=== PATIENT | female | born 1940 | race Caucasian/White ===

== ENCOUNTER 2019-11-03 15:12 | Inpatient (IN) | payer MEDICARE ==
--- NOTE | 2019-11-03 15:50 | RAD ---
XR Chest 1 View Portable HISTORY: Chest pain, palpitations COMPARISON: None FINDINGS: The heart size is normal. The aorta is tortuous. The lungs are well expanded without focal areas of consolidation, pneumothorax or pleural effusions. There are postop changes and metallic hardware in the lower cervical spine. IMPRESSION: No radiographic evidence of acute cardiopulmonary process.
[2019-11-03 15:59] LABS: Bacteria/HPF None Seen HPF (None Seen); Bilirubin Negative (Negative); Blood, Urine Negative (Negative); Clarity Clear (Clear); Glucose, Urine (Dipstick) Normal (Negative); Leukocyte 75 Leu/uL (Negative); Nitrite Negative (Negative); Protein, Urine (Dipstick) Negative (Neg-Trace); RBC/HPF 0-3 HPF (0-3); Squamous Epithelial 0-3 HPF (0-3); Urobilinogen Normal mg/dL (Less than 2)
[2019-11-03 17:41] LABS: #Basophils 0.1 thou/uL (0.0-0.2); #Eosinphils 0.1 thou/uL (0.0-0.7); #Monocytes 0.5 thou/uL (0.11-0.59); #Neutrophils 4.3 thou/uL (1.40-6.50); %Basophils 1.4 % (0.0-1.0); %Eosinophils 1.5 % (0.0-10.0); %Lymphocytes 28.7 % (21.0-51.0); %Monocytes 6.7 % (0.0-10.0); %Neutrophils 61.8 % (42.0-75.0); Hemoglobin 11.9 g/dL (12.0-16.0); Mean Corpuscular HGB CONC 33.8 g/dL (32.0-36.0); Mean Corpuscular Hemoglobin 32.9 pg (27.0-31.0); Mean Corpuscular Volume 97.3 fL (78.0-98.0); Mean Platelet Volume 7.8 fL (7.4-10.4); Platelet Count 334 thou/uL (130-400); RBC Distribution Width 11.3 % (11.5-14.5); Red Blood Cell (RBC) Count 3.63 mill/uL (4.20-5.40); White Blood Cell (WBC) Count 6.9 thou/uL (4.8-10.8)
[2019-11-03 17:50] LABS: ALT (SGPT) 9 U/L (8-55); AST (SGOT) 16 U/L (5-34); Albumin 4.3 g/dL (3.4-4.8); Alkaline Phosphatase 93 U/L (40-110); Anion Gap 11 mmol/L (10-20); BUN (Urea Nitrogen) 17 mg/dL (9.8-20.1); Bilirubin, Total 0.4 mg/dL (0.2-1.2); CK (CPK) 33 U/L (29-168); Calc. Creatinine Clearance 0 mL/min (70-130); Calcium 10.2 mg/dL (7.8-10.44); Carbon Dioxide 27 mmol/L (23-31); Chloride 107 mmol/L (98-107); Estimated GFR-MDRD 41; Globulin 2.8 g/dL (2.4-3.5); Glucose 88 mg/dL (83-110); Potassium 4.2 mmol/L (3.5-5.1); Protein, Total 7.1 g/dL (6.0-8.3); Sodium 141 mmol/L (136-145)
[2019-11-03 19:25] LABS: Magnesium 1.9 mg/dL (1.6-2.6)
[2019-11-03 20:33] LABS: Troponin I 0.023 ng/mL (< 0.028)
[2019-11-03] MEDS ORDERED: Senokot S 8.6-50 MG TAB PO PRN (21:39)
[2019-11-03] MEDS ORDERED: Acetaminophen 325 MG TAB PO PRN (21:39)
[2019-11-03] MEDS ORDERED: Calcium Carbonate 500 MG ChewTAB PO PRN (21:39)
[2019-11-03] MEDS ORDERED: Sodium Chloride 0.9% 1,000 ML IV SCH (21:45)
[2019-11-03] MEDS ORDERED: Magnesium 2 GM/50 ML 2 GM in Premix Bag 1 BAG IVPB SCH (22:00)
--- NOTE | 2019-11-03 22:29 | HP ---
PRIMARY CARE PHYSICIAN: Kenyatta Acosta NP CHIEF COMPLAINT: Near-syncope. HISTORY OF PRESENT ILLNESS: HPI was taken from both the patient and her granddaughter via telephone. The patient is a 79-year-old female with past medical history significant for orthostatic hypotension, hypothyroidism, hyperlipidemia, GERD, and bowel obstruction, who presents to the ER for the above complaint. The patient reports that she woke up this morning per usual, got out of bed and walked to the kitchen to feed her dog. When she bent over to place the dog food on the floor, she began to feel, "not right." She reports that she sat down and her symptoms resolved. Upon standing up from the chair, she became light headed and felt like she was going to pass out. Apparently, she decided to take a warm shower, which exacerbated her symptoms, reporting that she became faint and dizzy. The patient reports associated heart palpitations. Denies any chest pain, SOB, or wheezing. Denies any recent trauma or falls. She is not on any blood thinners. Denies any abdominal pain or blood in stools. She denies dysuria. The patient called her granddaughter to let her know that she was not feeling good. Her granddaughter called EMS. Her granddaughter reports that she had a similar episode in August, in which she was taken to [facility], and had a full cardiac workup including an EKG, cardiac stress test, echo, and labs. She reports that she had what appears to be an indeterminate troponin, which kept her admitted overnight, but the entire cardiac workup came back unremarkable. She was discharged home with PCP follow up for possible holter monitor. Unfortunately, the office of her PCP has been closed secondary to the COVID outbreak and they have not had chance to follow up with her. In the ER, the patient's vital signs were stable. She had a mildly elevated blood pressure of 155/88, but a regular pulse, regular respirations, and she was afebrile. EKG was now normal sinus rhythm 70 beats per minute. Chest x -ray was negative for any acute process. Initial troponin 0.016. CK was 33. Her CMP and CBC were unremarkable. Orthostatics were performed and she was positive. She was given 1 L normal saline. Her urine did show leukocyte esterase and some wbc 's, but no bacteria. PAST MEDICAL HISTORY: 1. Hypothyroidism. 2. Hyperlipidemia. 3. Bowel obstruction. 4. Orthostatic hypotension. 5. GERD. PAST SURGICAL HISTORY: 1. Neck surgery. 2. Cholecystectomy. 3. Hysterectomy. SOCIAL HISTORY: The patient lives in [place] alone at home. She uses a walker to ambulate. She is a one pack every two weeks smoker. She drinks alcohol rarely and denies any illicit drug use. FAMILY HISTORY: Noncontributory to this case. ALLERGIES: NO KNOWN ALLERGIES. HOME MEDICATIONS: 1. Levothyroxine 25 mcg p.o. q.a.m. 2. Statin, unknown dose and name. 3. Prilosec, unknown dose. PHYSICAL EXAMINATION: VITAL SIGNS: Temperature 98.3, blood pressure 155/88, pulse 80, respirations 16 , and SpO2 of 99% on room air. 0/10 pain. CONSTITUTIONAL: The patient is alert and oriented to person, place, and time. The patient appears anxious and fidgety and nontoxic in appearance. HEAD: Atraumatic and normocephalic. EYES: PERRLA. Extraocular muscles intact. ENT: Bilateral TMs intact. EACs are clear. Bilateral nares are patent. Oropharynx is clear. Uvula midline. Dry mucous membranes. No oral lesions. NECK: Supple. Trachea midline. No JVD. No cervical adenopathy. No cervical tenderness. Full range of motion. RESPIRATORY: Chest respirations even and nonlabored. No rhonchi, wheezes, or rales. CARDIAC: Regular rate and rhythm. 3/6 murmur. No rubs or gallops. ABDOMEN: Soft, nontender, and nondistended. Active bowel sounds. No guarding, rebound, or rigidity. Negative Rovsing sign. Negative Persaud sign. No abdominal bruit auscultated. BACK: Full range of motion. No central spinal tenderness. No CVA tenderness. EXTREMITIES: Bilateral upper extremities, full range of motion, normal strength , sensation intact. Palpable radial pulses. Bilateral lower extremities, full range of motion, normal strength, sensation intact. Palpable pedal pulses. No swelling. NEURO: The patient is alert and oriented to person, place, and time. Cranial nerves 2 through 12 are intact. No focal deficits. PSYCH: The patient appears anxious, alert, and oriented to person, place, and time. Denies suicidal or homicidal ideation. LABS AND DIAGNOSTICS: EKG, normal sinus rhythm, 70 beats per minute. Chest x- ray negative for any acute process. Initial troponin 0.016 and CK 33. Sodium 141, potassium 4.2, chloride 107, CO2 of 27, BUN 17, creatinine 1.25, glucose 88, T-bilirubin 0.4, alkaline phosphatase 93, AST 16, ALT 9, lipase of 21, and Mag of 1.9. WBC 6.9, hemoglobin 11.9, hematocrit 35.3, and platelets 33.4. UA showed leukocyte esterase and wbc's, no bacteria. The patient was orthostatic positive in the ER. IMPRESSION AND PLAN: 1. Near syncope. We will admit the patient to telemetry observation status. Expected length of stay less than two midnights. The patient had previous episode of syncope and heart palpitations approximately two months ago in August, had a complete cardiac workup at [facility], which included cardiac stress test, echo, labs, and EKG according to her granddaughter. She was then discharged and was to follow up with her PCP for cardiac referral with possible Holter monitor, which she has been unable to do due to COVID. The patient's EKG was normal sinus rhythm. Original troponin 0.016. CBC and CMP were unremarkable. We will trend troponin. Check BNP. Order carotid ultrasound. We will consult Dr. Norton with Cardiology. We will request the patient's records from [facility]. We will send urine for culture. 2. Heart palpitations. The patient had recent cardiac workup at [facility], was discharged home to follow up with PCP for possible Holter monitor. She has been unable to do so secondary to COVID outbreak. Found out today that she has a referral to Dr. Norton. 3. Orthostatic hypotension. The patient's orthostatic vital signs were positive. In the ER, the patient was given 1 L of normal saline. We will recheck orthostatics in the a.m. We will give gentle IV hydration. 4. Hypomagnesium, relative low. The patient presented with a Mag level of 1.9. We will give 2 g magnesium IV piggyback. We will recheck level in a.m. 5. Hypothyroidism. We will check TSH level. We will restart the patient's levothyroxine home dose of medication. 6. Tobacco abuse. The patient is a pack every two weeks smoker. We will prescribe NRT therapy. We will counsellors on tobacco cessation. 7. Sequential compression devices for deep venous thrombosis prophylaxis. No pharmaco deep venous thrombosis prophylaxis. We will give Protonix for gastrointestinal prophylaxis. The patient is a full code and POA is her granddaughter, Eliceo Diego, #[phone]. 8. Discussed the case with Dr. Mathias. Job ID: [id number] MTDD
[2019-11-03] MEDS: Nicotine 14 MG PATCH TD SCH (23:23)
[2019-11-04 02:44] VITALS: BMI 23.6
[2019-11-04 04:11] LABS: #Basophils 0.1 thou/uL (0.0-0.2); #Eosinphils 0.1 thou/uL (0.0-0.7); #Lymphocytes 2.5 thou/uL (1.20-3.40); #Monocytes 0.5 thou/uL (0.11-0.59); #Neutrophils 3.3 thou/uL (1.40-6.50); %Basophils 1.2 % (0.0-1.0); %Eosinophils 1.7 % (0.0-10.0); %Lymphocytes 38.1 % (21.0-51.0); %Monocytes 8.4 % (0.0-10.0); %Neutrophils 50.6 % (42.0-75.0); Hemoglobin 11.1 g/dL (12.0-16.0); Mean Corpuscular HGB CONC 34.2 g/dL (32.0-36.0); Mean Corpuscular Hemoglobin 33.3 pg (27.0-31.0); Mean Corpuscular Volume 97.6 fL (78.0-98.0); Mean Platelet Volume 7.7 fL (7.4-10.4); Platelet Count 287 thou/uL (130-400); RBC Distribution Width 11.4 % (11.5-14.5); Red Blood Cell (RBC) Count 3.32 mill/uL (4.20-5.40); White Blood Cell (WBC) Count 6.5 thou/uL (4.8-10.8)
[2019-11-04 04:38] LABS: Anion Gap 13 mmol/L (10-20); BUN (Urea Nitrogen) 14 mg/dL (9.8-20.1); Calc. Creatinine Clearance 38 mL/min (70-130); Calcium 8.9 mg/dL (7.8-10.44); Carbon Dioxide 21 mmol/L (23-31); Chloride 109 mmol/L (98-107); Estimated GFR-MDRD 49; Glucose 87 mg/dL (83-110); Magnesium 2.7 mg/dL (1.6-2.6); Potassium 3.8 mmol/L (3.5-5.1); Sodium 139 mmol/L (136-145)
--- NOTE | 2019-11-04 08:54 | ULT ---
EXAM: Carotid ultrasound HISTORY: Stroke/TIA COMPARISON: None TECHNIQUE: Multiplanar grayscale and color Doppler images were obtained in a carotid ultrasound. Spec tral analysis of the Doppler waveforms were performed. FINDINGS: A moderate amount of plaque is seen in both internal carotid arteries. No significant plaque is seen in either common carotid artery. The Doppler waveforms are normal in the visualized vessels. Peak systolic velocity in the right internal carotid artery 148 cm/s. Peak systolic velocity in the right common carotid artery 80 cm/s. The right ICA/CCA ratio is 1.8. Peak systolic velocity in the left internal carotid artery 113 cm/s. Peak systolic velocity in the left common carotid artery 99 cm/s. The left ICA/CCA ratio is 1.1. Both vertebral arteries demonstrate antegrade flow without focal stenosis IMPRESSION: No evidence of hemodynamically significant stenosis.
--- NOTE | 2019-11-04 09:24 | PDOC.HOSPP ---
- Subjective Encounter Date: 11/04/19 Encounter Time: 16:30 Subjective: Patient seen and examined for syncope. No CP/SOB or new focal deficits. No new complaints. No overnight events - Objective Vital Signs & Weight: Vital Signs (12 hours) Temp Pulse Resp BP Pulse Ox 11/04/19 03:23 98.1 F 63 18 161/74 H 100 11/03/19 22:20 98.2 F 70 16 173/73 H 95 Weight Weight 124 lb 14.4 oz I&O: 11/03/19 11/04/19 11/05/19 06:59 06:59 06:59 Intake Total 873 Balance 873 Result Diagrams: 11/04/19 03:28 11/04/19 03:28 EKG Reviewed by me: Yes (Tele SR) Hospitalist ROS - Review of Systems Respiratory: denies: cough, dry, shortness of breath, hemoptysis, SOB with excertion, pleuritic pain, sputum, wheezing, other Cardiovascular: denies: chest pain, palpitations, orthopnea, paroxysmal noc. dyspnea, edema, light headedness, other Gastrointestinal: denies: nausea, vomiting, abdominal pain, diarrhea, constipation, melena, hematochezia, other - Medication Medications: Active Medications Generic Name Dose Route Start Last Admin Trade Name Freq PRN Reason Stop Dose Admin Sodium Chloride 1,000 mls @ 50 mls/hr 11/03/19 21:45 11/03/19 23:22 Normal Saline 0.9% IV 1,000 mls .Q20H SLAVA Administration Nicotine 14 mg 11/03/19 22:00 11/03/19 23:23 Nicoderm Patch TD Not Given Q24HR SLAVA - Exam General Appearance: NAD Heart: RRR, no gallops, no rubs, normal peripheral pulses Respiratory: no wheezes, no rales, no ronchi, normal chest expansion Gastrointestinal: soft, non-tender, normal bowel sounds, no guarding, no rigidity Extremities: no cyanosis, no clubbing, no edema Extremities - other findings: no calf tenderness Neurological: no new deficit Psychiatric: normal affect, A&O x 3 Hosp A/P - Plan DVT proph w/SCDs Near syncope/Palpitations - prob due to Orthostatic hypotension CHASE on CKD 2 Sinus bradycardia HLD Hypothyroidism Chronic Anemia prob due to nutritional def Tob dep PLAN: DC IVF Restart ASA/Statins/Levothyroxine Add PRN antiHTN meds Await Cardio input Recheck Orthostatic vitals today Cont Tele monitoring Echo Await records [facility]
[2019-11-04] MEDS ORDERED: Aspirin 81 mg Enteric Coated Tablet PO SCH (09:30)
[2019-11-04] MEDS ORDERED: Amlodipine 5 MG TAB PO SCH (12:15)
[2019-11-04] MEDS ORDERED: Levothyroxine Sodium 50 MCG TAB PO SCH (12:30)
[2019-11-04] MEDS ORDERED: cloNIDine 0.1 MG TAB PO PRN (15:35)
[2019-11-04] MEDS ORDERED: Labetalol HCl 100 MG/20 ML VIAL SLOW IVP PRN ×2 (15:36→17:11)
--- NOTE | 2019-11-04 16:22 | CON ---
DATE OF CONSULTATION: 11/04/2019 REASON FOR CONSULTATION: Near-syncope. HISTORY OF PRESENT ILLNESS: Ms. Clayton is a very pleasant 79-year-old white female, who comes to the hospital for having a near syncopal spell. She had a similar spell about a week and a half ago. She was taken to a hospital in [facility] and she had a full workup including a normal stress test and an unremarkable echo. She was diagnosed with orthostatic hypotension and sent home. She states that she woke up this morning. She went from her bed to the kitchen, and when she bent over to place a dog food on the floor, she felt lightheaded. When she stood up, she had to sit down. Her symptoms got better. She stood up again from the chair to get to the room and she felt lightheaded again, so she had to sit back down. She cannot wait for the whole episode to get better and eventually she was able to get in the shower, take a warm shower, which actually made her symptoms a lot worse and felt like she was going to pass out, felt the heart palpitations, so she immediately came out of the shower, called her granddaughter who eventually called EMS. She was brought in for further evaluation. She has been monitored and her heart rate has been in the 50s. During her initial episode, when EMS came, her heart rate was in the 70s. Currently, she feels back to normal. She had orthostatic vital signs, which were very abnormal. She was given normal saline. Cardiology is being consulted for further help. PAST MEDICAL HISTORY: 1. Hypothyroidism. 2. Hyperlipidemia. 3. Bowel obstruction. 4. Orthostatic hypotension. 5. GERD. SURGICAL HISTORY: 1. Neck surgery. 2. Cholecystectomy. 3. Hysterectomy. SOCIAL HISTORY: Lives in [place]. Smokes about a pack every two weeks. Drinks social alcohol. No drug use. FAMILY HISTORY: Noncontributory. ALLERGIES: NO KNOWN DRUG ALLERGIES. OUTPATIENT MEDICATIONS: 1. Levothyroxine 25 mcg a day. 2. Prilosec. 3. Ergocalciferol. 4. Levothyroxine 50 mcg a day. 5. Calcium carbonate. 6. Simvastatin 10 mg at bedtime. 7. Aspirin 81 a day. REVIEW OF SYSTEMS: A 12-point review of systems was done and was all negative unless stated in the history of present illness. PHYSICAL EXAMINATION: VITAL SIGNS: Temperature 97.3, pulse 77, respiratory rate 18, sat 96% on room air, blood pressure 198/89 standing, dropped about 40 points since IV fluids have been given. She no longer is orthostatic. GENERAL: Awake, alert, and oriented x3. No distress. HEENT: Normocephalic, atraumatic. NECK: Supple. LUNGS: Clear. CARDIOVASCULAR: S1, S2. No S3 or S4. There is a grade 2/6 systolic murmur at the right upper sternal border. ABDOMEN: Soft. Positive bowel sounds. EXTREMITIES: No edema. SKIN: Warm and dry. LABORATORY DATA: Laboratory work was reviewed. White count of 6.9, hemoglobin 11.9, hematocrit 35, platelet count of 334. Chemistries were unremarkable. Troponin was negative x3. BNP was normal. TSH was normal. UA was unremarkable. EKG was reviewed. Chest x-ray was reviewed. Carotid Doppler was reviewed and showed no evidence of stenosis. ASSESSMENT: 1. Syncope. 2. Orthostatic hypotension. 3. Hypothyroidism. PLAN: 1. Most likely her presyncopal episode was related to orthostatic hypotension. 2. She has to avoid at all cause dehydration. She has to maintain very well hydrated. 3. High salt diet is recommended. 4. Wearing compression stockings to increase venous return is also highly recommended. 5. If echocardiogram is normal, she may be discharged home. 6. We will try to set her up for a 1-week monitor to make sure this is not related to any arrhythmias. 7. Her sinus bradycardia is not terrible, it is in the 50s and asymptomatic during as her symptoms are only when she stands up which goes with orthostatic hypotension. 8. I would only treat her standing blood pressure, so if her blood pressure lying down is in the 190s and blood pressure standing up in the 160s, we should only treat the number with her blood pressure standing up. At this time, I would stay away from any blood pressure medications. I will decide as an outpatient depending on how she does when she is able to maintain very well hydrated. Thank you for letting us participate in the care of your patient. Job ID: [id number]
[2019-11-04] MEDS ORDERED: Nitroglycerin 0.4 MG TAB (25 Tab Bottle) PO PRN (18:13)
[2019-11-04] MEDS ORDERED: hydrALAZINE 20 MG/ML VIAL SLOW IVP PRN (18:18)
[2019-11-04] MEDS: Atorvastatin Calcium 10 MG TAB PO SCH (20:17)
[2019-11-04] MEDS: Nicotine 14 MG PATCH TD SCH (20:24)
[2019-11-04] MEDS ORDERED: Simvastatin 20 MG TAB PO SCH (21:00)
[2019-11-04] MEDS ORDERED: Prevnar 13-Val Conj/PF 0.5 ML SYRINGE IM ONE (21:00)
[2019-11-05] MEDS: Levothyroxine Sodium 50 MCG TAB PO SCH (04:23)
[2019-11-05] MEDS ORDERED: Levothyroxine Sodium 25 MCG TAB PO SCH (06:00)
[2019-11-05] MEDS ORDERED: Aspirin 81 mg Enteric Coated Tablet PO SCH (09:00)
[2019-11-05] MEDS ORDERED: Amlodipine 5 MG TAB PO SCH (09:00)
--- NOTE | 2019-11-05 17:07 | PDOC.CPN ---
- Subjective Date: 11/05/19 Time: 17:05 Interval history: She had an episode of pre syncope the same as when she was at home and it correlated with rapid afib HR in the 170's. - Review of Systems General: denies: fever/chills, weight/appetite/sleep changes, night sweats, fatigue Respiratory: denies: cough, congestion, shortness of breath, exercise intolerance Cardiovascular: denies: chest pain, palpitation, edema, paroxysmal nocturnal dyspnea, orthopnea Gastrointestinal: denies: nausea, vomiting, diarrhea, constipation, abd pain, GI bleeding Musculoskeletal: denies: pain, tenderness, stiffness, swelling, arthritis/ arthralgias Neurological: denies: numbness, syncope, seizure, weakness - Objective Allergies/Adverse Reactions: Allergies Allergy/AdvReac Type Severity Reaction Status Date / Time No Known Drug Allergies Allergy Verified 11/04/19 02:32 Visit Medications: Current Medications Acetaminophen (Tylenol) 650 mg PO Q4H PRN PRN Reason: Headache/Fever/Mild Pain (1-3) Apixaban (Eliquis) 5 mg PO BID [facility] Aspirin (Ecotrin) 81 mg PO DAILY [facility] Last Admin: 11/05/19 08:10 Dose: 81 mg Atorvastatin Calcium (Lipitor) 10 mg PO HS [facility] Last Admin: 11/04/19 20:17 Dose: 10 mg Calcium Carbonate (Tums) 1,000 mg PO Q4H PRN PRN Reason: Heartburn or Indigestion Flecainide Acetate (Tambocor) 50 mg PO Q12HR [facility] Hydralazine HCl (Apresoline) 10 mg SLOW IVP Q4H PRN PRN Reason: Standing Sbp Greater Than 160 Levothyroxine Sodium (Synthroid) 50 mcg PO 0600 [facility] Last Admin: 11/05/19 04:23 Dose: 50 mcg Nicotine (Nicoderm Patch) 14 mg TD Q24HR [facility] Last Admin: 11/04/19 20:24 Dose: Not Given Nitroglycerin (Nitrostat) 0.4 mg PO Q5MIN PRN PRN Reason: Chest Pain Pantoprazole Sodium (Protonix) 40 mg PO DAILY [facility] Last Admin: 11/05/19 08:11 Dose: 40 mg Senna/Docusate Sodium (Senokot S) 2 tab PO BID PRN PRN Reason: Constipation Sodium Chloride (Flush - Normal Saline) 10 ml IVF Q12HR PRN PRN Reason: Saline Flush Vital Signs & Weight: Vital Signs Temp Pulse Resp BP BP BP BP 11/05/19 12:00 97.8 F 65 16 173/80 H 11/05/19 08:00 97.5 F L 69 18 160/71 H 130/57 L 188/82 H Pulse Ox 11/05/19 12:00 98 11/05/19 08:00 96 Weight 122 lb 1.6 oz - Physical Exam General: alert & oriented x3 HEENT: mucus membranes moist Neck: supple neck, midline trachea Cardiac: regular rate and rhythm Lungs: normal breath sounds Neuro: grossly intact Abdomen: active bowel sounds Extremities: no edema Skin: clear Musculoskeletal: no pain - Labs Result Diagrams: 11/04/19 03:28 11/04/19 03:28 Troponin/CKMB Troponin I 0.017 ng/mL (< 0.028) 11/04/19 01:59 - Telemetry Sinus rhythms and dysrhythmias: sinus rhythm Supraventricular conduction: atrial fibrillation - Assessment/Plan Assessment/Plan: 1. Paroxysmal afib, new diagnosis 2. Orthostatic hypotension 3. Hypothyroidism. PLAN: - Will start coreg, flecainide and Eliquis for stroke prophylaxis. - Would keep in hospital to make sure she does not get too bradycardic at least for 243 hrs after her first 2 doses. - If bradycardic she may need a PPM for Tahcy som syndrome.
--- NOTE | 2019-11-05 17:24 | PDOC.HOSPP ---
- Subjective Encounter Date: 11/05/19 Encounter Time: 16:00 Subjective: Patient seen and examined for Syncope. Intermittent palpitations with near syncope earlier. No CP. No other complaints. No overnight events - Objective Vital Signs & Weight: Vital Signs (12 hours) Temp Pulse Resp BP BP BP BP 11/05/19 12:00 97.8 F 65 16 173/80 H 11/05/19 08:00 97.5 F L 69 18 160/71 H 130/57 L 188/82 H Pulse Ox 11/05/19 12:00 98 11/05/19 08:00 96 Weight Weight 122 lb 1.6 oz I&O: 11/04/19 11/05/19 11/06/19 06:59 06:59 06:59 Intake Total 2193 Output Total 1200 Balance 993 Result Diagrams: 11/04/19 03:28 11/04/19 03:28 EKG Reviewed by me: Yes (Tele Afib) Hospitalist ROS - Review of Systems Respiratory: denies: cough, dry, shortness of breath, hemoptysis, SOB with excertion, pleuritic pain, sputum, wheezing, other Cardiovascular: denies: chest pain, palpitations, orthopnea, paroxysmal noc. dyspnea, edema, light headedness, other Gastrointestinal: denies: nausea, vomiting, abdominal pain, diarrhea, constipation, melena, hematochezia, other - Medication Medications: Active Medications Generic Name Dose Route Start Last Admin Trade Name Freq PRN Reason Stop Dose Admin Aspirin 81 mg 11/05/19 09:00 11/05/19 08:10 Ecotrin PO 81 mg DAILY SLAVA Administration Atorvastatin Calcium 10 mg 11/04/19 21:00 11/04/19 20:17 Lipitor PO 10 mg HS SLAVA Administration Levothyroxine Sodium 50 mcg 11/05/19 06:00 11/05/19 04:23 Synthroid PO 50 mcg 0600 SLAVA Administration Nicotine 14 mg 11/03/19 22:00 11/04/19 20:24 Nicoderm Patch TD Not Given Q24HR SLAVA Pantoprazole Sodium 40 mg 11/04/19 09:00 11/05/19 08:11 Protonix PO 40 mg DAILY SLAVA Administration - Exam General Appearance: NAD Neck: supple, no JVD Heart: no gallops, no rubs, normal peripheral pulses, irregular Respiratory: no wheezes, no rales, no ronchi, normal chest expansion Gastrointestinal: non-tender, non-distended, normal bowel sounds Extremities: no cyanosis, no clubbing Neurological: no new deficit Psychiatric: normal affect, A&O x 3 Hosp A/P - Plan DVT proph w/SCDs Near syncope/Palpitations - prob due to new onset Afib with RVR and Orthostatic hypotension CHASE on CKD 2 Sinus bradycardia HLD Hypothyroidism Chronic Anemia prob due to nutritional def Tob dep PLAN: Started on Flecainide with Eliquis - Pt/family understands the risk of anticoag Monitor closely for bradycardia DC ASA Cont Statins/Levothyroxine Cardio input appreciated Cont Tele monitoring Echo - normal EF
[2019-11-05] MEDS: Atorvastatin Calcium 10 MG TAB PO SCH (20:50)
[2019-11-05] MEDS: Apixaban 5 MG TAB PO SCH (20:50)
[2019-11-05] MEDS: Flecainide 50 MG TAB PO SCH (20:50)
[2019-11-06] MEDS: Levothyroxine Sodium 50 MCG TAB PO SCH (05:25)
[2019-11-06] MEDS: Apixaban 5 MG TAB PO SCH (09:10)
[2019-11-06] MEDS: Flecainide 50 MG TAB PO SCH (09:11)
[2019-11-06] MEDS: Carvedilol 3.125 MG TAB PO SCH ×2 (09:11→16:33)
--- NOTE | 2019-11-06 12:14 | EKG ---
Test Reason : Blood Pressure : / mmHG Vent. Rate : 070 BPM Atrial Rate : 070 BPM P-R Int : 162 ms QRS Dur : 062 ms QT Int : 372 ms P-R-T Axes : 065 020 053 degrees QTc Int : 401 ms Normal sinus rhythm Possible Left atrial enlargement Borderline ECG Confirmed by AZUCENA GUTIERREZ, DEEPTI ([id number]), video editor CLEOPATRA SARAH ([id number]) on 11/06/2019 12:13:44 PM Referred By: Confirmed By:DEEPTI ZENG MD
--- NOTE | 2019-11-06 14:30 | PDOC.HOSPP ---
- Subjective Encounter Date: 11/06/19 Encounter Time: 10:30 Subjective: Patient seen and examined for syncope. Feels better. No new complaints. No overnight events - Objective Vital Signs & Weight: Vital Signs (12 hours) Temp Pulse Resp BP BP BP BP 11/06/19 11:25 98.2 F 68 18 119/64 11/06/19 07:23 97.5 F L 67 20 167/79 H 155/70 H 185/84 H 11/06/19 07:20 11/06/19 03:14 97.8 F 61 18 119/58 L Pulse Ox 11/06/19 11:25 96 11/06/19 07:23 98 11/06/19 07:20 98 11/06/19 03:14 99 Weight Weight 121 lb 11.2 oz I&O: 11/05/19 11/06/19 11/07/19 06:59 06:59 06:59 Intake Total 2193 240 Output Total 1200 350 Balance 993 -110 Result Diagrams: 11/04/19 03:28 11/04/19 03:28 EKG Reviewed by me: Yes (Tele SR) Hospitalist ROS - Review of Systems Respiratory: denies: cough, dry, shortness of breath, hemoptysis, SOB with excertion, pleuritic pain, sputum, wheezing, other Cardiovascular: denies: chest pain, palpitations, orthopnea, paroxysmal noc. dyspnea, edema, light headedness, other Gastrointestinal: denies: nausea, vomiting, abdominal pain, diarrhea, constipation, melena, hematochezia, other - Medication Medications: Active Medications Generic Name Dose Route Start Last Admin Trade Name Miquelq PRN Reason Stop Dose Admin Apixaban 5 mg 11/05/19 21:00 11/06/19 09:10 Eliquis PO 5 mg BID SLAVA Administration Atorvastatin Calcium 10 mg 11/04/19 21:00 11/05/19 20:50 Lipitor PO 10 mg HS SLAVA Administration Carvedilol 3.125 mg 11/06/19 08:00 11/06/19 09:11 Coreg PO 3.125 mg BID-WM SLAVA Administration Flecainide Acetate 50 mg 11/05/19 21:00 11/06/19 09:11 Tambocor PO 50 mg Q12HR SLAVA Administration Levothyroxine Sodium 50 mcg 11/05/19 06:00 11/06/19 05:25 Synthroid PO 50 mcg 0600 SLAVA Administration Pantoprazole Sodium 40 mg 11/04/19 09:00 11/06/19 09:11 Protonix PO 40 mg DAILY SLAVA Administration - Exam General Appearance: NAD Heart: RRR, no gallops Respiratory: no wheezes, no ronchi Gastrointestinal: non-tender, non-distended, normal bowel sounds Extremities: no cyanosis, no clubbing Neurological: no new deficit Hosp A/P - Plan DVT proph w/SCDs Near syncope/Palpitations - prob due to new onset Afib with RVR and Orthostatic hypotension CHASE on CKD 2 Sinus bradycardia HLD Hypothyroidism Chronic Anemia prob due to nutritional def Tob dep PLAN: Cont Coreg Cont Flecainide Cont Eliquis Cont Statins Cont Levothyroxine Echo - normal EF Cont to monitor Monitor for bradycardia
--- NOTE | 2019-11-06 15:01 | PDOC.CPN ---
- Subjective Date: 11/06/19 Time: 14:59 Interval history: She is doing very well. She denies any more episodes. No more afib on telemetry. - Review of Systems General: denies: fever/chills, weight/appetite/sleep changes, night sweats, fatigue Respiratory: denies: cough, congestion, shortness of breath, exercise intolerance Cardiovascular: denies: chest pain, palpitation, edema, paroxysmal nocturnal dyspnea, orthopnea Gastrointestinal: denies: nausea, vomiting, diarrhea, constipation, abd pain, GI bleeding Musculoskeletal: denies: pain, tenderness, stiffness, swelling, arthritis/ arthralgias Neurological: denies: numbness, syncope, seizure, weakness - Objective Allergies/Adverse Reactions: Allergies Allergy/AdvReac Type Severity Reaction Status Date / Time No Known Drug Allergies Allergy Verified 11/04/19 02:32 Visit Medications: Current Medications Acetaminophen (Tylenol) 650 mg PO Q4H PRN PRN Reason: Headache/Fever/Mild Pain (1-3) Apixaban (Eliquis) 5 mg PO BID [facility] Last Admin: 11/06/19 09:10 Dose: 5 mg Atorvastatin Calcium (Lipitor) 10 mg PO HS [facility] Last Admin: 11/05/19 20:50 Dose: 10 mg Calcium Carbonate (Tums) 1,000 mg PO Q4H PRN PRN Reason: Heartburn or Indigestion Carvedilol (Coreg) 3.125 mg PO BID[facility] Last Admin: 11/06/19 09:11 Dose: 3.125 mg Flecainide Acetate (Tambocor) 50 mg PO Q12HR [facility] Last Admin: 11/06/19 09:11 Dose: 50 mg Hydralazine HCl (Apresoline) 10 mg SLOW IVP Q4H PRN PRN Reason: Standing Sbp Greater Than 160 Levothyroxine Sodium (Synthroid) 50 mcg PO 0600 [facility] Last Admin: 11/06/19 05:25 Dose: 50 mcg Nitroglycerin (Nitrostat) 0.4 mg PO Q5MIN PRN PRN Reason: Chest Pain Pantoprazole Sodium (Protonix) 40 mg PO DAILY [facility] Last Admin: 11/06/19 09:11 Dose: 40 mg Senna/Docusate Sodium (Senokot S) 2 tab PO BID PRN PRN Reason: Constipation Sodium Chloride (Flush - Normal Saline) 10 ml IVF Q12HR PRN PRN Reason: Saline Flush Vital Signs & Weight: Vital Signs Temp Pulse Resp BP BP BP BP 11/06/19 11:25 98.2 F 68 18 119/64 11/06/19 07:23 97.5 F L 67 20 167/79 H 155/70 H 185/84 H 11/06/19 07:20 11/06/19 03:14 97.8 F 61 18 119/58 L Pulse Ox 11/06/19 11:25 96 11/06/19 07:23 98 11/06/19 07:20 98 11/06/19 03:14 99 Weight 121 lb 11.2 oz - Physical Exam General: alert & oriented x3 HEENT: mucus membranes moist Neck: supple neck Cardiac: regular rate and rhythm Lungs: clear to auscultation Neuro: grossly intact Abdomen: active bowel sounds Extremities: no edema Skin: clear Musculoskeletal: no pain - Labs Result Diagrams: 11/04/19 03:28 11/04/19 03:28 Troponin/CKMB Troponin I 0.017 ng/mL (< 0.028) 11/04/19 01:59 - Telemetry Sinus rhythms and dysrhythmias: sinus rhythm - Assessment/Plan Assessment/Plan: 1. Paroxysmal afib, new diagnosis 2. Orthostatic hypotension 3. Hypothyroidism. PLAN: - Tolerating coreg, flecainide with HR in the 60's to 70's. - Eliquis for stroke prophylaxis. - If she becomes bradycardic eventually she will need a PPM, not the darryn at this time. - May discharge home today. Follow up in the office in 2 weeks.
--- NOTE | 2019-11-06 16:21 | DIS ---
DATE OF ADMISSION: 11/03/2019 DATE OF DISCHARGE: 11/06/2019 DISCHARGE DISPOSITION: Home. FOLLOWUP: 1. Follow up with primary care physician, Kenyatta Acosta NP, in 1 week. 2. Follow up with Cardiology, Dr. Norton in 2 to 3 weeks. 3. Fall precaution was emphasized. 4. The patient was advised to use a walker. A compression stockings for orthostatic hypotension were recommended. 5. The patient was seen and examined on the day of discharge. Denies any new complaints. Please refer to my progress note for details. BRIEF HOSPITAL COURSE: The patient is a 79-year-old female with history of orthostatic hypotension, presented to the hospital with near syncopal episode along with palpitations. Please refer to the history and physical for further details. The patient was admitted to the hospital with diagnosis of near syncope secondary to orthostatic hypotension. She was monitored on telemetry unit. She was found to have orthostatic hypotension for which she received IV fluids. Later on, she was found to have intermittent atrial fibrillation with rapid ventricular response. She was started on flecainide along with carvedilol. Anticoagulation was also initiated due to elevated [id number] score. Echocardiogram showed ejection fraction 60% to 65% with grade 1 of 3 diastolic dysfunction, mild concentric left ventricular hypertrophy, mild mitral regurgitation, mild tricuspid regurgitation. The patient was evaluated by Cardiology this admission as well. She has been cleared by Cardiology for discharge. FINAL DIAGNOSES: 1. Near syncope secondary to orthostatic hypotension and tachyarrhythmia due to atrial fibrillation. 2. Palpitations. 3. Acute kidney injury on chronic kidney disease 2 on admission, improved. Her creatinine at discharge is 1.07. 4. Sinus bradycardia. 5. Hyperlipidemia. 6. Hypothyroidism. 7. Chronic anemia probably due to nutritional deficiency. 8. Tobacco dependence. 9. The patient and the family understand the above plan of care. Job ID: [id number]
[2019-11-06 16:23] VITALS: BP 145/70; TEMP 97.9
== END 2019-11-06 17:40 | disposition home or self-care (01) | DRG 312 ==
LOC: ERS 15:12 → OBSVTOIN 20:31 → 2NO 20:31
PROVIDERS: ADMIT Internal Medicine; ATTEND Internal Medicine
DX: I95.1 Orthostatic hypotension (principal); N17.9 Acute kidney failure, unspecified; I48.0 Paroxysmal atrial fibrillation; I08.1 Rheumatic disorders of both mitral and tricuspid valves; E78.5 Hyperlipidemia, unspecified; E03.9 Hypothyroidism, unspecified; D53.9 Nutritional anemia, unspecified; F17.210 Nicotine dependence, cigarettes, uncomplicated; K21.9 Gastro-esophageal reflux disease without esophagitis; E83.42 Hypomagnesemia; N18.2 Chronic kidney disease, stage 2 (mild); Z79.890 Hormone replacement therapy; Z79.899 Other long term (current) drug therapy; Z90.49 Acquired absence of other specified parts of digestive tract
CPT/HCPCS: 36415; 71045; 80048; 80053; 81003; 81015; 82550; 83690; 83735; 83880; 84443; 84484; 85025; 87086; 93005; 93306; 93880; 94760; 96360; 96361; 96365; G0378; J3475